=== PATIENT | male | born 1965 | race African-American/Black ===

== ENCOUNTER 2016-12-14 01:52 | Emergency (ER) | payer MEDICAID ==
[~2016-12-14] VITALS: Ht 185.4 cm; Wt 78.0 kg
[~2016-12-14 01:52] MED LIST: ASPI-1159 PO; ATEN-42 PO; DIVA500T3 PO; INSLAN SQ; LANS30CA10 PO; METF850T2 PO; SIMV20TA6 PO
[2016-12-14] MEDS ORDERED: SODIUM CHLORIDE 0.9% 1,000 ML IV ONE (03:21)
[2016-12-14] MEDS ORDERED: KETOROLAC 30MG/ML VIAL IV STA (03:21)
[2016-12-14 03:49] LABS: BASOPHILS % 0.4 % (0.0-2.0); EOSINOPHILS % 2.3 % (0.0-5.0); HEMATOCRIT. 36.1 % (42.0-52.0); HEMOGLOBIN. 12.2 g/dL (14.0-18.0); LYMPHOCYTES % 56.3 % (20.0-50.0); MEAN CORPUSCULAR HEMOGLOBIN 27.9 pg (28.0-32.0); MEAN CORPUSCULAR VOLUME 82.3 fL (80.0-94.0); MEAN PLATELET VOLUME 7.3 fl (7.4-10.4); MONOCYTES % 9.1 % (2.0-8.0); NEUTROPHILS % 31.9 % (40.0-76.0); PLATELET 275 x1000/uL (130-400); RED BLOOD CELL COUNT 4.38 mill/uL (4.7-6.1); RED CELL DISTRIBUTION WIDTH 14.2 % (11.6-14.6)
[2016-12-14 03:52] LABS: CLARITY URINE CLEAR (CLEAR); COLOR URINE YELLOW (YELLOW); GLUCOSE URINE NEGATIVE (NEGATIVE); KETONES URINE TRACE (NEGATIVE); LEUKOCYTE ESTERASE URINE NEGATIVE (NEGATIVE); NITRITE URINE NEGATIVE (NEGATIVE); OCCULT BLOOD URINE NEGATIVE (NEGATIVE); PROTEIN URINE 1+ (NEGATIVE); SPECIFIC GRAVITY URINE 1.025 (1.005-1.030)
[2016-12-14 03:55] LABS: PROTHROMBIN TIME 10.7 sec
[2016-12-14 04:04] LABS: CARBON DIOXIDE 29 mEq/L (21-32); CHLORIDE 105 mEq/L (98-107)
[2016-12-14 05:07] VITALS: BP 122/89
== END 2016-12-14 05:21 | disposition home or self-care (01) ==
LOC: ER 03:15
DX: R10.13 Epigastric pain (principal); E11.9 Type 2 diabetes mellitus without complications; F17.200 Nicotine dependence, unspecified, uncomplicated; E78.00 Pure hypercholesterolemia, unspecified; Z79.4 Long term (current) use of insulin; Z79.82 Long term (current) use of aspirin; Z88.0 Allergy status to penicillin
CPT/HCPCS: 36415; 74000; 80053; 81001; 83690; 85025; 85610; 96361; 96374; 99285; J1885; J7030; Z7610

== ENCOUNTER 2016-12-31 04:17 | Emergency (ER) | payer MEDICAID ==
[~2016-12-31] VITALS: Ht 188 cm; Wt 78.0 kg
[2016-12-31] MEDS ORDERED: KETOROLAC 60MG/2ML VIAL IM ONE (06:30)
[2016-12-31 06:50] VITALS: BP 136/85
== END 2016-12-31 07:55 | disposition home or self-care (01) ==
LOC: ER 07:53
DX: M25.512 Pain in left shoulder (principal); E11.9 Type 2 diabetes mellitus without complications; I10 Essential (primary) hypertension; F17.210 Nicotine dependence, cigarettes, uncomplicated; Z79.82 Long term (current) use of aspirin; Z79.4 Long term (current) use of insulin; Z79.899 Other long term (current) drug therapy; Z88.0 Allergy status to penicillin; Z88.8 Allergy status to other drugs, medicaments and biological substances; Z98.890 Other specified postprocedural states; Z87.442 Personal history of urinary calculi
CPT/HCPCS: 96372; 99283; J1885

== ENCOUNTER 2017-03-01 23:44 | Emergency (ER) | payer MEDICAID ==
[~2017-03-01] VITALS: Ht 188 cm; Wt 77.6 kg
[~2017-03-01 23:44] MED LIST changes: -LANS30CA10 PO; +LANS30CA52 PO
[2017-03-02 00:10] VITALS: BP 120/83
== END 2017-03-02 00:58 | disposition left against medical advice (07) ==
LOC: ER 23:55
DX: Z53.21 Procedure and treatment not carried out due to patient leaving prior to being seen by health care provider (principal)

== ENCOUNTER 2017-04-09 15:41 | Emergency (ER) | payer MEDICAID ==
[~2017-04-09] VITALS: Ht 182.9 cm; Wt 76.0 kg
[2017-04-09 15:42] VITALS: BP 136/91
== END 2017-04-09 19:45 | disposition left against medical advice (07) ==
LOC: ER 16:33
DX: R51 Headache (principal); Z53.21 Procedure and treatment not carried out due to patient leaving prior to being seen by health care provider

== ENCOUNTER 2017-05-28 15:17 | Emergency (ER) | payer MEDICAID ==
[~2017-05-28] VITALS: Ht 177.8 cm; Wt 74.0 kg
[2017-05-28 15:55] VITALS: BP 133/92
== END 2017-05-28 16:00 | disposition left against medical advice (07) ==
LOC: ER 15:38
DX: R07.9 Chest pain, unspecified (principal); Z53.21 Procedure and treatment not carried out due to patient leaving prior to being seen by health care provider

== ENCOUNTER 2017-06-27 00:06 | Emergency (ER) | payer MEDICAID ==
[~2017-06-27] VITALS: Ht 182.9 cm; Wt 77.0 kg
[2017-06-27] MEDS ORDERED: KETOROLAC 30MG/ML VIAL IV ONE (03:00)
[2017-06-27] MEDS ORDERED: DEXAMETHASONE 10 MG/ML VIAL IV ONE (03:00)
[2017-06-27] MEDS ORDERED: SODIUM CHLORIDE 0.9% 1,000 ML IV ONE (03:00)
[2017-06-27] MEDS ORDERED: PROCHLORPERAZINE 10MG/2ML VIAL IV ONE (03:00)
[2017-06-27] MEDS ORDERED: DIPHENHYDRAMINE 50MG/ML VIAL IV ONE (04:00)
[2017-06-27] MEDS ORDERED: SUMATRIPTAN SUCCINATE 6MG/0.5ML VIAL SUBCUT ONE (05:15)
[2017-06-27 07:20] VITALS: BP 132/76
== END 2017-06-27 07:22 | disposition home or self-care (01) ==
LOC: ER 01:30
DX: G43.909 Migraine, unspecified, not intractable, without status migrainosus (principal); E11.9 Type 2 diabetes mellitus without complications; I10 Essential (primary) hypertension; R10.9 Unspecified abdominal pain; F17.200 Nicotine dependence, unspecified, uncomplicated; Z79.4 Long term (current) use of insulin; Z79.82 Long term (current) use of aspirin; Z88.0 Allergy status to penicillin; Z88.5 Allergy status to narcotic agent; Z90.49 Acquired absence of other specified parts of digestive tract
CPT/HCPCS: 96361; 96372; 96374; 96375; 99284; J0780; J1100; J1200; J1885; J3030

== ENCOUNTER 2017-10-20 00:01 | Emergency (ER) | payer MEDICAID ==
[~2017-10-20] VITALS: Ht 182.9 cm; Wt 74.3 kg
[2017-10-20] MEDS ORDERED: KETOROLAC 60MG/2ML VIAL IM ONE (02:00)
[2017-10-20 02:14] LABS: BASOPHILS % 0.7 % (0.0-2.0); HEMATOCRIT. 37.5 % (42.0-52.0); HEMOGLOBIN. 12.6 g/dL (14.0-18.0); MEAN CORPUSCULAR HEMOGLOBIN 27.4 pg (28.0-32.0); MEAN CORPUSCULAR VOLUME 81.7 fL (80.0-94.0); MEAN PLATELET VOLUME 6.9 fl (7.4-10.4); MONOCYTES % 9.4 % (2.0-8.0); NEUTROPHILS % 40.9 % (40.0-76.0); PLATELET 314 x1000/uL (130-400); RED BLOOD CELL COUNT 4.59 mill/uL (4.7-6.1); RED CELL DISTRIBUTION WIDTH 13.9 % (11.6-14.6)
[2017-10-20 02:22] LABS: CHLORIDE 106 mEq/L (98-107)
[2017-10-20 05:00] VITALS: BP 129/71
== END 2017-10-20 06:47 | disposition home or self-care (01) ==
LOC: ER 00:01
DX: R10.32 Left lower quadrant pain (principal); E11.9 Type 2 diabetes mellitus without complications; I10 Essential (primary) hypertension; F17.200 Nicotine dependence, unspecified, uncomplicated; Z88.6 Allergy status to analgesic agent; Z88.5 Allergy status to narcotic agent; Z88.0 Allergy status to penicillin; Z90.49 Acquired absence of other specified parts of digestive tract; Z79.4 Long term (current) use of insulin
CPT/HCPCS: 36415; 72040; 72100; 74176; 80053; 83690; 85025; 96372; 99285; J1885; Z7610

== ENCOUNTER 2017-12-14 22:13 | Inpatient (IN) | payer MEDICAID ==
[~2017-12-14] VITALS: Ht 185.4 cm; Wt 76.2 kg
[2017-12-14] MEDS ORDERED: MORPHINE SULFATE 4 MG/ML CPJ (NOT FOR IM USE) IV STA (23:19)
[2017-12-14] MEDS ORDERED: ONDANSETRON HCL 4MG/2ML VIAL IV STA (23:19)
[2017-12-14 23:35] LABS: BASOPHILS % 1.3 % (0.0-2.0); EOSINOPHILS % 2.2 % (0.0-5.0); HEMATOCRIT. 37.6 % (42.0-52.0); HEMOGLOBIN. 12.7 g/dL (14.0-18.0); LYMPHOCYTES % 45.2 % (20.0-50.0); MEAN CORPUSCULAR HEMOGLOBIN 27.7 pg (28.0-32.0); MEAN PLATELET VOLUME 7.7 fl (7.4-10.4); MONOCYTES % 8.8 % (2.0-8.0); NEUTROPHILS % 42.5 % (40.0-76.0); PLATELET 298 x1000/uL (130-400); RED BLOOD CELL COUNT 4.59 mill/uL (4.7-6.1); RED CELL DISTRIBUTION WIDTH 14.3 % (11.6-14.6)
[2017-12-14 23:39] LABS: CHLORIDE 105 mEq/L (98-107)
[2017-12-15] MEDS ORDERED: SODIUM CHLORIDE 0.9% 1,000 ML IV SCH (05:08)
[2017-12-15 08:20] VITALS: BP_SYST 116; BP_DIAS 83; BP_DIAS 85
[2017-12-15] MEDS ORDERED: ONDANSETRON HCL 4MG/2ML VIAL IV PRN (09:00)
[2017-12-15] MEDS ORDERED: ACETAMINOPHEN 650MG/20.3ML UDC GT PRN (09:00)
[2017-12-15] MEDS ORDERED: GUAIFENESIN 200MG/10ML SUGAR FREE UDC PO PRN (09:00)
[2017-12-15] MEDS ORDERED: LORAZEPAM 2MG/ML CPJ IV PRN (09:00)
[2017-12-15] MEDS ORDERED: CLONIDINE 0.1MG TABLET PO PRN (09:00)
[2017-12-15] MEDS ORDERED: MAGNESIUM/ALUMINUM HYDROXIDE/SIMETHICONE 30ML UDC PO PRN (09:00)
[2017-12-15] MEDS ORDERED: DEXTROSE 50% WATER 50ML SYRINGE IV PRN (09:00)
[2017-12-15] MEDS ORDERED: ACETAMINOPHEN 650MG SUPP PR PRN (09:00)
[2017-12-15] MEDS ORDERED: ACETAMINOPHEN 325MG TABLET PO PRN (09:00)
[2017-12-15] MEDS ORDERED: SODIUM CHLORIDE 0.45% 1,000 ML IV SCH (09:15)
[2017-12-15] MEDS ORDERED: METFORMIN HCL 850MG TABLET PO SCH (09:15)
[2017-12-15] MEDS ORDERED: METFORMIN HCL 500MG TABLET PO SCH (09:15)
[2017-12-15] MEDS: ASPIRIN 81MG TABLET PO SCH (09:52)
[2017-12-15] MEDS ORDERED: PANTOPRAZOLE SODIUM 40 MG/VIAL IV SCH (10:00)
[2017-12-15] MEDS ORDERED: MORPHINE SULFATE 4 MG/ML CPJ (NOT FOR IM USE) IV PRN (11:00)
[2017-12-15] MEDS ORDERED: PNEUMOCOCCAL 23-VAL P-SAC VAC 0.5 ML IM ONE (11:45)
[2017-12-15 11:59] VITALS: BP 118/78
[2017-12-15] MEDS: BLOOD SUGAR DIAGNOSTIC STRIP TEST SCH ×3 (12:10→20:44)
[2017-12-15] MEDS: INSULIN LISPRO 100 UNITS/ML SUBCUT SCH ×3 (12:40→21:17)
[2017-12-15] MEDS: IPRATROPIUM/ALBUTEROL 0.5-3(2.5)MG/3ML NEB INH SCH ×2 (15:01→20:55)
[2017-12-15 15:59] LABS: CREATINE KINASE 142 IU/L (39-308)
[2017-12-15 16:00] VITALS: BP 112/75
[2017-12-15 16:00] LABS: CREATINE KINASE MB FRACTION 1.3 ng/mL (0.5-3.6)
[2017-12-15 20:00] VITALS: BP 112/74
[2017-12-15] MEDS: PANTOPRAZOLE SODIUM 40 MG/VIAL IV SCH (20:54)
[2017-12-15] MEDS ORDERED: ATORVASTATIN CALCIUM 20MG TABLET PO SCH (21:00)
[2017-12-15 23:16] LABS: CREATINE KINASE 132 IU/L (39-308)
[2017-12-15 23:17] LABS: CREATINE KINASE MB FRACTION 1.2 ng/mL (0.5-3.6)
[2017-12-15 23:23] LABS: CLARITY URINE CLEAR (CLEAR); COLOR URINE YELLOW (YELLOW); KETONES URINE NEGATIVE (NEGATIVE); LEUKOCYTE ESTERASE URINE NEGATIVE (NEGATIVE); NITRITE URINE NEGATIVE (NEGATIVE); OCCULT BLOOD URINE NEGATIVE (NEGATIVE); PROTEIN URINE NEGATIVE (NEGATIVE); SPECIFIC GRAVITY URINE 1.015 (1.005-1.030); UROBILINOGEN URINE 0.2 E.U./dL (0.2-1.0)
[2017-12-15 23:44] LABS: *BARBITURATES SCREEN URINE NEGATIVE (NEGATIVE)
[2017-12-15 23:45] LABS: *AMPHETAMINES SCREEN URINE NEGATIVE (NEGATIVE); *BENZODIAZEPINES SCREEN URINE NEGATIVE (NEGATIVE); *COCAINE SCREEN URINE NEGATIVE (NEGATIVE); METHADONE URINE SCREEN NEGATIVE (NEGATIVE); PHENCYCLIDINE URINE SCREEN NEGATIVE (NEGATIVE)
[2017-12-15 23:46] LABS: CANNABINOID URINE SCREEN NEGATIVE (NEGATIVE); OPIATES URINE SCREEN PRESUMTIVE POSITIVE (NEGATIVE)
[2017-12-16] VITALS: BP 107/70
[2017-12-16] MEDS: IPRATROPIUM/ALBUTEROL 0.5-3(2.5)MG/3ML NEB INH SCH ×4 (01:20→14:21)
[2017-12-16 04:00] VITALS: BP_SYST 109; BP_SYST 99; BP_DIAS 51; BP_DIAS 71
[2017-12-16] MEDS: BLOOD SUGAR DIAGNOSTIC STRIP TEST SCH ×2 (05:35→11:48)
[2017-12-16] MEDS: INSULIN LISPRO 100 UNITS/ML SUBCUT SCH ×2 (06:03→11:48)
[2017-12-16 06:38] LABS: BASOPHILS % 0.6 % (0.0-2.0); EOSINOPHILS % 2.6 % (0.0-5.0); HEMATOCRIT. 36.3 % (42.0-52.0); LYMPHOCYTES % 56.3 % (20.0-50.0); MEAN CORPUSCULAR HEMOGLOBIN 27.3 pg (28.0-32.0); MEAN CORPUSCULAR VOLUME 82.5 fL (80.0-94.0); MEAN PLATELET VOLUME 7.6 fl (7.4-10.4); MONOCYTES % 7.9 % (2.0-8.0); NEUTROPHILS % 32.6 % (40.0-76.0); PLATELET 284 x1000/uL (130-400); RED CELL DISTRIBUTION WIDTH 14.1 % (11.6-14.6)
[2017-12-16 06:49] LABS: CHLORIDE 105 mEq/L (98-107)
[2017-12-16 06:57] LABS: LDL CHOLESTEROL 84 mg/dL (5-100)
[2017-12-16 06:59] LABS: HDL CHOLESTEROL 31 mg/dL (40-59); T4 FREE 0.98 ng/dL (0.76-1.46)
[2017-12-16] MEDS ORDERED: PANTOPRAZOLE 40MG DR TABLET PO SCH (07:10)
[2017-12-16] MEDS ORDERED: LANSOPRAZOLE 30MG DR CAPSULE PO SCH (07:10)
[2017-12-16] MEDS ORDERED: REGADENOSON 0.4 MG/5 ML IV ONE ×2 (08:39→11:00)
[2017-12-16] MEDS: PANTOPRAZOLE SODIUM 40 MG/VIAL IV SCH (09:00)
[2017-12-16] MEDS: ASPIRIN 81MG TABLET PO SCH (09:00)
[2017-12-16 12:00] VITALS: BP 116/79
== END 2017-12-16 17:45 | disposition home or self-care (01) ==
LOC: ER 22:13 → 8WST 12-15 05:09 → EDBEDREQTM 12-15 05:15 → EDBEDREQ 12-15 05:15 → ENRESERV 12-15 06:34
PROVIDERS: ADMIT Internal Medicine; ATTEND Internal Medicine
DX: K80.20 Calculus of gallbladder without cholecystitis without obstruction (principal); E11.22 Type 2 diabetes mellitus with diabetic chronic kidney disease; K25.9 Gastric ulcer, unspecified as acute or chronic, without hemorrhage or perforation; I12.9 Hypertensive chronic kidney disease with stage 1 through stage 4 chronic kidney disease, or unspecified chronic kidney disease; E78.5 Hyperlipidemia, unspecified; J44.9 Chronic obstructive pulmonary disease, unspecified; F17.210 Nicotine dependence, cigarettes, uncomplicated; K21.9 Gastro-esophageal reflux disease without esophagitis; N18.2 Chronic kidney disease, stage 2 (mild); R07.89 Other chest pain; Z60.2 Problems related to living alone; Z79.4 Long term (current) use of insulin; Z79.82 Long term (current) use of aspirin; Z82.49 Family history of ischemic heart disease and other diseases of the circulatory system; Z90.49 Acquired absence of other specified parts of digestive tract; I25.2 Old myocardial infarction; Z79.899 Other long term (current) drug therapy; Z88.0 Allergy status to penicillin; Z88.8 Allergy status to other drugs, medicaments and biological substances
CPT/HCPCS: 36415; 71045; 76705; 78452; 80053; 80061; 80305; 81003; 82550; 82553; 82962; 83690; 83880; 84439; 84443; 84481; 84484; 85025; 93005; 93017; 93306; 96361; 96374; 96375; 99285; A9500; C9113; J1815; J2270; J2405; J2785; J7030; J7620